=== PATIENT | male | born 1990 ===

== ENCOUNTER 2020-12-19 06:37 | Emergency (ER) | payer OTHER, SELFPAY ==
[2020-12-19 07:15] LABS: Bilirubin,Urine NEG (Negative); Blood,Urine NEG (Negative); Color,Urine Yellow (Yellow); Mucus,Urine FEW /HPF; Protein,Urine <15 mg/dL mg/dL (Negative); Urobilinogen,Urine < 2.0 mg/dL (<2.0)
[2020-12-19 07:23] LABS: Basophils % (Auto) 0.3 % (0.0-1.8); Eosinophils # (Auto) 0.1 K/mm3 (0.0-0.4); Eosinophils % (Auto) 0.4 % (0.0-4.3); Hematocrit 45.4 % (35.5-45.6); Hemoglobin 15.3 gm/dl (11.8-15.2); Lymphocytes # (Auto) 2.4 K/mm3 (1.2-5.4); Mean Corpuscular HGB Conc 34 % (32-34); Mean Corpuscular Volume 92 fl (84-94); Monocytes # (Auto) 0.9 K/mm3 (0.0-0.8); Platelet Count 243 K/mm3 (140-440); Red Blood Count 4.91 M/mm3 (3.65-5.03); Red Cell Distribution Width 13.3 % (13.2-15.2)
[2020-12-19 07:24] LABS: Benzodiazepines Screen,Urine Negative; Cocaine Screen,Urine Negative; Methadone Screen,Urine Negative; Opiate Screen,Urine Negative
[2020-12-19 07:42] LABS: Amphetamine Screen,Urine Positive; Cannabinoid Screen,Urine Positive
[2020-12-19 07:42] LABS: BUN/Creatinine Ratio 7; Blood Urea Nitrogen 8 mg/dL (9-20); Calcium 10.5 mg/dL (8.4-10.2); Hemolysis Index 6
[2020-12-19] MEDS ORDERED: NICOTINE 14 MG/24 HR PATCH TD ONE (08:37)
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
--- NOTE | 2020-12-19 10:23 | Consultation ---
History of Present Illness - Reason for Consult Consult date: 12/19/20 Reason for consult: SI - History of Present Psychiatric Illness Per ER Note: This is a 30-year-old male who presents to the emergency department for a mental health evaluation. The patient has a history of depression, anxiety, bipolar disorder and PTSD. He was previously on trazodone many years ago but stopped it secondary to recurrent priapism. The patient came in via EMS after he had a verbal dispute with his fiance. They were arguing about something when the fianc allegedly told him that "she did not want to be family anymore." The patient went out to his car "where I have a knife" and had suicidal ideations with a plan to use the knife. Patient says that he called the [facility] to inquire about getting psychiatric help, but then his phone went . PD and EMS were called and the patient was brought to our emergency department for evaluation. The patient admits to having intermittent suicidal ideations in the past, especially when he was in the . The patient just recently moved down here from [place]. In [place] the patient says that he was going to anger management and it helped him at the time to develop some coping mechanisms. He has an appointment set up with a psychiatrist and PCP down here, but was not able to get an appointment until mid February. Patient is a tobacco smoker. He denies any hallucinations or homic idal ideations. Jaya Pepe is a 30y/o male patient who was seen today for suicidal thoughts. Upon my evaluation of the patient he was calm, cooperative and polite. He makes good eye contact. The patient says the he was feeling suicidal when he came in because of "being into it with my fiance." He says he suffers from PTSD bipolar and anxiety. The patient says "I have had time to calm down. I don't want to do that. Didn't want to do it then." He says "I am depressed about the situation, but not to the point where I don't want to live." The patient says [facility] but states "I never started taking it, but I think I need it." He also says he was going to anger management and states "that helped me. That's what I really need." The patient states "I'm not going to hurt myself or nobody else. I feel better about the situation now." The patient denies any illicit drug use outside of "weed," although his drug screen is positive for amphetamines. PAST PSYCHIATRIC HISTORY Diagnoses: Depression, ptsd, bipolar Suicide attempts or Self-harm behavior: denies Prior psychiatric hospitalizations: yes Substance Abuse history: denies Previous psychiatric medications tried: never started them Outpatient treatment: "I don't know" PAST MEDICAL HISTORY: None reported Family Psychiatric History: None reported or documented SOCIAL HISTORY Marital Status: Single Living Arrangements: with fiance Employment Status: unemployed Access to guns/weapons: None report Education: high school History of Abuse: None reported Legal History: yes REVIEW OF SYSTEMS Constitutional: Negative for weight loss ENT: Negative for stridor Respiratory: Negative for cough or hemoptysis All other systems reviewed and are negative MENTAL STATUS EXAMINATION General Appearance and Behavior: Age appropriate, good hygiene, wearing appropriate clothes, good eye contact, calm, cooperative and polite Cooperation: Participating/engaged Psychomotor Behavior: Psychomotor normal Mood: depressed Affect and affective range: euthymic Thought Process: goal directed Thought Content: optimism Speech: Normal rate, volume and rhythm Intellectual Functioning: Average Suicidal Ideation: Denies Homicidal Ideation: Denies Hallucinations: Denies Delusions: None elicited Impulse Control: Limited Insight and Judgment: Limited insight and judgment Memory: Normal Attention: Normal Orientation: Alert, oriented Assessment and Plan (1) Major Depressive Disorder (2) Amphetamine Use Disorder Treatment Plan D/c 1013 Zoloft 25mg po daily Doxepin 10mg po daily Risks, benefits and alternatives of medications discussed with the patient, questions answered and consent obtained from patient. PSYCHOTHERAPY: Supportive psychotherapy provided MEDICAL: Per primary team DELIRIUM PRECAUTIONS: Please re-orient patient frequently, keep lights on during the day, and minimize benzodiazepines and opiates as these medications could worsen patient's confusion. DIRECTOR OF ATHLETICS: Defer to medical DISPOSITION: Do not recommend acute inpatient psychiatric hospitalization at this time. The patient understands that if suicidal thoughts or any thoughts to harm any one else he should seek immediate assistance. He is to abstain from all illicit drug use He is to follow up with outpatient psych in 7 to 14 days upon discharge The sole stapler welt to discuss and document safety plan The sole stapler welt to give the patient outpatient resources Will sign off Thank you for the consult. Please contact with any questions and/or concerns. Case discussed with Dr. Damon who agrees with current disposition Medications and Allergies Allergies Allergy/AdvReac Type Severity Reaction Status Date / Time No Known Allergies Allergy Unverified 12/19/20 06:56 Home Medications Medication Instructions Recorded Confirmed Last Taken Type Doxepin [SINEquan] 10 mg PO QHS #30 capsule 12/19/20 Unknown Rx Sertraline [Zoloft] 25 mg PO QDAY #30 tab 12/19/20 Unknown Rx Mental Status Exam - Vital signs Last Vital Signs Temp 98.2 F 12/19/20 06:48 Pulse 90 12/19/20 06:48 Resp 18 12/19/20 06:48 BP 135/75 12/19/20 06:48 Pulse Ox 100 12/19/20 06:48 Results Result Diagrams: 12/19/20 07:02 12/19/20 07:02 Abnormal lab results 12/19/20 12/19/20 12/19/20 Range/Units 07:02 07:02 07:02 WBC (4.5-11.0) K/mm3 Hgb (11.8-15.2) gm/dl [place] # (Auto) (0.0-0.8) K/mm3 Seg Neutrophils % (40.0-70.0) % Seg Neutrophils # (1.8-7.7) K/mm3 BUN 8 L (9-20) mg/dL Glucose 108 H (75-100) mg/dL Calcium 10.5 H (8.4-10.2) mg/dL Salicylates < 0.3 L (2.8-20.0) mg/dL Acetaminophen 5.0 L (10.0-30.0) ug/mL 12/19/20 Range/Units 07:02 WBC 12.6 H (4.5-11.0) K/mm3 Hgb 15.3 H (11.8-15.2) gm/dl [place] # (Auto) 0.9 H (0.0-0.8) K/mm3 Seg Neutrophils % 73.3 H (40.0-70.0) % Seg Neutrophils # 9.2 H (1.8-7.7) K/mm3 BUN (9-20) mg/dL Glucose (75-100) mg/dL Calcium (8.4-10.2) mg/dL Salicylates (2.8-20.0) mg/dL Acetaminophen (10.0-30.0) ug/mL All other labs normal.
[2020-12-19] MEDS ORDERED: SERTRALINE 25 MG TAB PO SCH (11:00)
[2020-12-19 11:43] VITALS: BP 114/74
--- NOTE | 2020-12-19 14:30 | Event Note ---
Date: 12/19/20 The patient was seen by the psychiatric nurse practitioner, in conjunction with the psychiatrist, Dr. Damon. At the time of their examination the patient denies any suicidal ideations. They have done a full evaluation have decided to rescind the 1013 and it brought me the chart for discharge. I went back and spoke with the patient again. He is awake, oriented, calm and appropriate. He tells me that the suicidal ideations were intermittent and that he has not been feeling suicidal since he arrived to the emergency department. The patient has been given a prescription for 2 different psychiatric medications and outpatient resources for behavioral health. The patient understands that it may take up to 7 to 10 days to establish care somewhere, but he feels that he will be able to cope knowing that he has some outpatient follow-up sooner than the previous appointment he had set up in mid-February. The patient says that he feels hopeful and happy to "start the process." He understands that he should call 911 or the suicide hotline immediately with any return of suicidal ideations, thoughts of harming anybody else, or with any acute distress.
== END 2020-12-19 14:55 ==
LOC: ED 06:37
DX: F31.9 Bipolar disorder, unspecified (principal); R45.851 Suicidal ideations; Z20.822 Contact with and (suspected) exposure to COVID-19
CPT/HCPCS: 36415; 80048; 80307; 81001; 85025; 99284; U0003; 80320; G0480